=== PATIENT | male | born 1975 ===

== ENCOUNTER → 2023-03-23 | Outpatient (CLI) | LOC: M SOG 08:02 | PROVIDERS: ATTEND Physician Assistant | DX: S62.627A Displaced fracture of middle phalanx of left little finger, initial encounter for closed fracture (principal); X58.XXXA Exposure to other specified factors, initial encounter; Y92.9 Unspecified place or not applicable ==

== ENCOUNTER → 2023-03-31 | Outpatient (CLI) | LOC: M SOG 11:40 | PROVIDERS: ATTEND Physician Assistant | DX: M79.644 Pain in right finger(s) (principal) ==

== ENCOUNTER → 2023-04-14 | Outpatient (CLI) | LOC: M SOG 08:08 | PROVIDERS: ATTEND Physician Assistant | DX: M79.644 Pain in right finger(s) (principal); Z53.9 Procedure and treatment not carried out, unspecified reason ==